=== PATIENT | female | born 1970 | race Caucasian/White ===

== ENCOUNTER 2018-08-30 11:40 | Outpatient (CLI) | payer OTHER ==
--- NOTE | 2018-08-30 12:24 | RAD ---
XR Elbow Rt 4 View STANDARD History: [Fall. Elbow pain.] Comparison: None. Findings: Large or effusion. Nondisplaced fracture of the medial epicondyle of the humerus. Radial he ad appears be intact. No dislocation. Conoid process appears be intact. Impression: Nondisplaced fracture medial epicondyle of the distal humerus.
== END 2018-08-30 11:41 | disposition home or self-care (01) ==
LOC: BICRAD 11:40
PROVIDERS: ATTEND Nurse Practitioner Family
DX: M25.521 Pain in right elbow (principal); S42.444A Nondisplaced fracture (avulsion) of medial epicondyle of right humerus, initial encounter for closed fracture; W19.XXXA Unspecified fall, initial encounter

== ENCOUNTER 2019-05-28 13:45 | Emergency (ER) | payer OTHER | END 2019-05-28 14:10 | disposition home or self-care (01) | LOC: ERS 13:45 | DX: D17.9 Benign lipomatous neoplasm, unspecified (principal); F17.210 Nicotine dependence, cigarettes, uncomplicated | CPT/HCPCS: 99282 ==